=== PATIENT | male | born 1980 | race African-American/Black ===

== ENCOUNTER 2016-12-29 13:55 | Emergency (ER) | payer OTHER ==
[~2016-12-29] VITALS: Ht 175.3 cm; Wt 81.6 kg
== END 2016-12-29 14:55 | disposition home or self-care (01) ==
LOC: ED 13:55
DX: H92.03 Otalgia, bilateral (principal); H91.91 Unspecified hearing loss, right ear; H60.502 Unspecified acute noninfective otitis externa, left ear
CPT/HCPCS: 99282